=== PATIENT | male | born 1950 | race Caucasian/White ===

== ENCOUNTER 2017-04-07 20:26 | Observation (INO) | payer MEDICARE, OTHER ==
[2017-04-07] MEDS ORDERED: Diltiazem 25 MG/5 ML SDV IVPUSH ONE ×2 (20:37→22:16)
[2017-04-07] MEDS ORDERED: Sodium Chloride 0.9% 10 ML Syringe FLUSH PRN (20:37)
[2017-04-07] MEDS ORDERED: HYDROmorphone 2 MG/ML SDV IM ONE (21:45)
[2017-04-07] MEDS ORDERED: Ondansetron 4 MG Tab.DIS PO PRN (21:58)
--- NOTE | 2017-04-07 22:09 | PCM.HP ---
H&P History of Present Illness - General Date of Service: 04/07/17 Admit Problem/Dx: Admission Diagnosis/Problem Admission Diagnosis/Problem Rapid atrial fibrillation Source of Information: Patient History Limitations: Reports: No Limitations - History of Present Illness Initial Comments - Free Text/Narative: This is a 66-year-old male patient that started having palpitations, chest pressure that radiated up to his neck. This is a 6 PM he came at 7 PM and was noted to have rapid atrial fibrillation. He was given Cardizem 20 mg IV his heart rate slowed down his chest pain improved considerable. Troponin was checked in the ER and it was negative. He says he is always a little sweaty. Nothing new. No shortness of breath, nausea. He has a long history of atrial fibrillation 80s been reverted many times. The last time that he was cardioverted and was in [place] and given flecainide and he's been in sinus rhythm ever since. He says S2-3 years ago. He states he recently had a stress test but couldn't walk on the treadmill. They did chemically and was negative. That was at [facility] - Related Data Allergies/Adverse Reactions: Allergies Allergy/AdvReac Type Severity Reaction Status Date / Time No Known Allergies Allergy Verified 04/07/17 21:21 Home Medications: Home Meds Flecainide [Tambocor] 100 mg PO BID 04/23/15 [History] Metoprolol Succinate [Toprol Xl] 50 mg PO BEDTIME 04/23/15 [History] Mirtazapine [Remeron] 7.5 mg PO BEDTIME 04/23/15 [History] atorvaSTATin [Lipitor] 5 mg PO BEDTIME 04/23/15 [History] metFORMIN [Glucophage] 500 mg PO BID 04/23/15 [History] Past Medical History HEENT History: Reports: Other (See Below) (Hearing loss left ear) Cardiovascular History: Reports: Afib, Arrhythmia, High Cholesterol, Hypertension Other Psychiatric History: sleeping issues - Past Surgical History GI Surgical History: Reports: Appendectomy Musculoskeletal Surgical History: Reports: Arthroscopic Knee (Then a ACL repair after school.) Social & Family History - Tobacco Use Smoking Status *Q: Never Smoker Second Hand Smoke Exposure: No - Caffeine Use Caffeine Use: Reports: Coffee - Recreational Drug Use Recreational Drug Use: No H&P Review of Systems - Review of Systems: Review Of Systems: See Below General: Reports: No Symptoms HEENT: Reports: No Symptoms Pulmonary: Reports: No Symptoms Cardiovascular: Reports: Chest Pain, Palpitations. Denies: Edema, Syncope Gastrointestinal: Reports: No Symptoms Genitourinary: Reports: No Symptoms Musculoskeletal: Reports: No Symptoms Skin: Reports: No Symptoms Psychiatric: Reports: No Symptoms Neurological: Reports: No Symptoms Hematologic/Lymphatic: Reports: No Symptoms Immunologic: Reports: No Symptoms Exam - Exam Exam: See Below - Vital Signs Vital Signs: Last Vital Signs Temp 98.7 F 04/07/17 21:23 Pulse 156 H 04/07/17 21:23 Resp 18 04/07/17 21:23 BP 146/94 H 04/07/17 21:23 Pulse Ox 95 04/07/17 21:23 Weight: 270 lb - Exam General: Alert, Oriented, Cooperative HEENT: EACs Clear, Mucosa Moist & [place], Posterior Pharynx Clear, TMs Clear Neck: Supple, Trachea Midline Lungs: Clear to Auscultation, Normal Respiratory Effort. No: Crackles, Rales, Rhonchi, Rub Cardiovascular: Irregular Rhythm, Tachycardia. No: Systolic Murmur, Diastolic Murmur GI/Abdominal Exam: Normal Bowel Sounds, Soft, Non-Tender, No Organomegaly, No Distention, No Abnormal Bruit, No Mass Back Exam: Normal Inspection, Full Range of Motion, NT Extremities: Normal Inspection, Normal Range of Motion, Non-Tender, No Pedal Edema Skin: Warm Neurological: Normal Speech, Normal Tone Neuro Extensive - Mental Status: Alert, Oriented x3, Normal Mood/Affect, Normal Cognition Psychiatric: Alert, Normal Affect, Normal Mood - Patient Data Result Diagrams: 04/07/17 20:45 04/07/17 20:45 EKG INTERPRETATION Rhythm: A-Fib (Rapid) *Q Meaningful Use (ADM) - VTE *Q VTE Criteria *Q: - Stroke *Q Stroke Criteria *Q: - AMI *Q AMI Criteria *Q: - Problem List (1) Rapid atrial fibrillation SNOMED Code(s): 575035454 ICD Code: I48.91 - UNSPECIFIED ATRIAL FIBRILLATION Status: Acute Current Visit: Yes (2) Diabetes 1.5, managed as type 2 SNOMED Code(s): 055332057 ICD Code: E10.9 - TYPE 1 DIABETES MELLITUS WITHOUT COMPLICATIONS Status: Acute Current Visit: Yes Problem List Initiated/Reviewed/Updated: Yes Orders Last 24hrs: Active Orders 24 hr Category Date Time Status Patient Status [ADT] Routine ADT 04/07/17 21:58 Ordered Blood Glucose Check, Bedside [RC] BIDMEALS Care 04/07/17 21:58 Ordered EKG Documentation Completion [RC] ASDIRECTED Care 04/07/17 22:02 Ordered May Shower [RC] ASDIRECTED Care 04/07/17 21:58 Ordered Oxygen Therapy [RC] PRN Care 04/07/17 21:58 Ordered Up ad Annel [RC] ASDIRECTED Care 04/07/17 21:58 Ordered VTE/DVT Education [RC] Per Unit Routine Care 04/07/17 21:58 Ordered Vital Signs [RC] Q4H Care 04/07/17 21:58 Ordered Consistent Carbohydrate Diet [DIET] Diet 04/07/17 Breakfast Ordered INR,PT,PROTHROMBIN TIME [COAG] AM Lab 04/08/17 05:11 Ordered TROPONIN I [CHEM] AM Lab 04/08/17 05:11 Ordered Flecainide [Tambocor] Med 04/08/17 09:00 Ordered 100 mg PO BID Metoprolol Succinate [Toprol XL] Med 04/08/17 21:00 Ordered 50 mg PO BEDTIME Mirtazapine [Remeron] Med 04/08/17 21:00 Ordered 7.5 mg PO BEDTIME Ondansetron [Zofran ODT] Med 04/07/17 21:58 Ordered 4 mg PO Q4H PRN Sodium Chloride 0.9% @ 125 MLS/HR (1000ml) Med 04/07/17 22:15 Ordered Sodium Chloride 0.9% [Normal Saline] 1,000 ml IV ASDIRECTED atorvaSTATin [Lipitor] Med 04/08/17 21:00 Ordered 5 mg PO BEDTIME metFORMIN [Glucophage] Med 04/08/17 09:00 Ordered 500 mg PO BID Resuscitation Status Routine Resus Stat 04/07/17 21:58 Ordered EKG 12 Lead [EK] AM Ther 04/08/17 05:11 Ordered Medication Orders Atorvastatin Calcium (Lipitor) 5 mg PO BEDTIME SHARON Sodium Chloride (Normal Saline) 1,000 mls @ 125 mls/hr IV ASDIRECTED SHARON Metformin HCl (Glucophage) 500 mg PO BID SHARON Metoprolol Succinate (Toprol Xl) 50 mg PO BEDTIME SHARON Mirtazapine (Remeron) 7.5 mg PO BEDTIME SHARON Non-Formulary Medication (Flecainide [Tambocor]) 100 mg PO BID SHARON Ondansetron HCl (Zofran Odt) 4 mg PO Q4H PRN PRN Reason: nausea, able to take PO Sodium Chloride (Saline Flush) 10 ml FLUSH ASDIRECTED PRN PRN Reason: Keep Vein Open Last Admin: 04/07/17 21:10 Dose: 10 ml Assessment/Plan Comment:: 1. Admit the patient for observation in the ICU. 2. Discussed CODE STATUS needle be a full code. 3. Diabetic diet with Accu-Cheks twice a day. 4. Up ad annel. and may shower. 5. Restart regular medicines. 6. Cardizem drip to keep heart rate below 90 beats a minute. Keep blood pressure greater than 90/60
[2017-04-07] MEDS ORDERED: Diltiazem 100 MG in Sodium Chloride 0.9% 100 ML IV SCH (22:30)
[2017-04-07] MEDS: Sodium Chloride 0.9% 1,000 ML IV SCH (23:58)
[2017-04-08] MEDS ORDERED: Diltiazem 100 MG in Sodium Chloride 0.9% 100 ML IV SCH ×3 (01:30)
--- NOTE | 2017-04-08 03:00 | ER ---
DATE SEEN: 04/07/2017 TIME SEEN: 2100 hours. CHIEF COMPLAINT: Chest tightness. HISTORY OF PRESENT ILLNESS: This is a 66-year-old male with chest tightness that started this afternoon, it radiates to the neck area. He also has palpitations. He has a history of Afib, stable; type 2 diabetes, stable; hyperlipidemia and hypertension that have been well controlled. REVIEW OF SYSTEMS: He complains of nausea, vomiting. No headache. No fever or cough. ALLERGIES: No known allergies. SOCIAL HISTORY: He does not smoke. PHYSICAL EXAMINATION: VITAL SIGNS: His blood pressure initially is 160/130 and pulse 156, temperature 98.7, he has normal oxygenation while breathing room air. EARS, NOSE, and THROAT: Negative. HEAD: Normal size. NECK: Supple. CHEST: Clear. CARDIOVASCULAR: Irregular rate, tachycardic. LABORATORY DATA: BNP is 88. Troponin 0.01. White cell count is normal. Chest x-ray unremarkable. IMPRESSION: 1. Atrial fibrillation exacerbation with rapid ventricular response. 2. Chest pain. PLAN: I advised Dr. Armendariz to admit him. I did give him one bolus of 20 mg of Cardizem. He will be admitted for observation. /[id number] DIMITRY/ANTHONY
[2017-04-08] MEDS ORDERED: Acetaminophen 325 MG Tab PO PRN (03:10)
[2017-04-08] MEDS ORDERED: Metoprolol Succinate 100 MG Tab.ER PO ONE (08:25)
--- NOTE | 2017-04-08 08:27 | PCM.PN ---
- General Info Date of Service: 04/08/17 Admission Dx/Problem (Free Text): Patient has no concerns today. He denies chest pain, shortness of breath, palpitations. - Patient Data Vitals - Most Recent: Last Vital Signs Temp 97.7 F 04/08/17 05:00 Pulse 75 04/08/17 06:00 Resp 17 04/08/17 06:00 BP 105/58 L 04/08/17 06:00 Pulse Ox 96 04/08/17 06:00 Weight - Most Recent: 270 lb I&O - Last 24 Hours: Intake & Output 04/07/17 04/08/17 04/08/17 22:59 06:59 14:59 Intake Total 892 Balance 892 Lab Results Last 24 Hours: Laboratory Results - last 24 hr 04/08/17 04/08/17 Range/Units 06:10 06:10 PT 26.2 H (8.7-11.1) INR 2.54 H (0.89-1.13) Troponin I < 0.01 L (0.02-0.06) NG/ML Med Orders - Current: Current Medications Acetaminophen (Tylenol) 650 mg PO Q4H PRN PRN Reason: Pain (mild 1-3) Last Admin: 04/08/17 03:48 Dose: 650 mg Atorvastatin Calcium (Lipitor) 5 mg PO BEDTIME SHARON Sodium Chloride (Normal Saline) 1,000 mls @ 125 mls/hr IV ASDIRECTED SHARON Last Admin: 04/07/17 23:58 Dose: 125 mls/hr Diltiazem HCl 100 mg/ Sodium (Chloride) 100 mls @ 5 mls/hr IV TITRATE SHARON; 5 MG /HR PRN Reason: Protocol Last Titration: 04/08/17 05:04 Dose: 5 mg/hr, 5 mls/hr Metformin HCl (Glucophage) 500 mg PO BID SHARON Metoprolol Succinate (Toprol Xl) 50 mg PO BEDTIME SHARON Mirtazapine (Remeron) 7.5 mg PO BEDTIME SHARON Non-Formulary Medication (Flecainide [Tambocor]) 100 mg PO BID SHARON Ondansetron HCl (Zofran Odt) 4 mg PO Q4H PRN PRN Reason: nausea, able to take PO Sodium Chloride (Saline Flush) 10 ml FLUSH ASDIRECTED PRN PRN Reason: Keep Vein Open Last Admin: 04/07/17 21:10 Dose: 10 ml Discontinued Medications Diltiazem HCl (Diltiazem) 20 mg IVPUSH ONETIME ONE Stop: 04/07/17 20:38 Last Admin: 04/07/17 21:10 Dose: 20 mg Diltiazem HCl (Diltiazem) 15 mg IVPUSH ONETIME ONE Stop: 04/07/17 22:17 Last Admin: 04/07/17 23:17 Dose: 15 mg Diltiazem HCl 100 mg/ Sodium (Chloride) 100 mls @ 5 mls/hr IV TITRATE SHARON; 5 MG /HR PRN Reason: Protocol Diltiazem HCl 100 mg/ Sodium (Chloride) 100 mls @ 5 mls/hr IV TITRATE SHARON; 5 MG /HR PRN Reason: Protocol - Exam General: Alert, Oriented, Cooperative Lungs: Clear to Auscultation, Normal Respiratory Effort Cardiovascular: Regular Rate, No Murmurs, Irregular Rhythm Extremities: No Pedal Edema - Problem List & Annotations (1) Rapid atrial fibrillation SNOMED Code(s): 581771264 Code(s): I48.91 - UNSPECIFIED ATRIAL FIBRILLATION Status: Acute Current Visit: Yes (2) Diabetes 1.5, managed as type 2 SNOMED Code(s): 396145092 Code(s): E10.9 - TYPE 1 DIABETES MELLITUS WITHOUT COMPLICATIONS Status: Acute Current Visit: Yes - Problem List Review Problem List Initiated/Reviewed/Updated: Yes - My Orders Last 24 Hours: My Active Orders 04/07/17 21:58 Patient Status [ADT] Routine Blood Glucose Check, Bedside [RC] BIDMEALS May Shower [RC] ASDIRECTED Oxygen Therapy [RC] PRN Up ad Annel [RC] ASDIRECTED VTE/DVT Education [RC] Per Unit Routine Vital Signs [RC] Q4H Ondansetron [Zofran ODT] 4 mg PO Q4H PRN Resuscitation Status Routine 04/07/17 22:15 Sodium Chloride 0.9% [Normal Saline] 1,000 ml IV ASDIRECTED 04/08/17 00:00 Diltiazem [Cardizem] 100 mg Sodium Chloride 0.9% [Normal Saline] 100 ml IV TITRATE 04/08/17 05:11 EKG 12 Lead [EK] AM 04/08/17 09:00 Flecainide [Tambocor] 100 mg PO BID metFORMIN [Glucophage] 500 mg PO BID 04/08/17 21:00 Metoprolol Succinate [Toprol XL] 50 mg PO BEDTIME Mirtazapine [Remeron] 7.5 mg PO BEDTIME atorvaSTATin [Lipitor] 5 mg PO BEDTIME - Plan Plan:: Since his rate is controlled on a Cardizem drip and I do not want to have it on several different rates lowering agents. I'm going to increase his Toprol 100 mg XL once a day. Then 20 minutes later start to wean down his Cardizem drip. Hopefully his rate will be maintained. If we can maintain his rate on the beta donovan consider discharging to home. If we cannot then going to have to go to by mouth Cardizem. And then watch his rate.
[2017-04-08] MEDS: Sodium Chloride 0.9% 1,000 ML IV SCH (08:40)
[2017-04-08] MEDS ORDERED: [UNRECOGNIZED DRUG - REMARK] PO SCH (09:00)
[2017-04-08] MEDS ORDERED: METFORMIN 500 MG PO SCH ×2 (09:00→18:00)
[2017-04-08] MEDS ORDERED: Warfarin 10 MG Tab PO SCH ×2 (09:00→16:00)
[2017-04-08 14:08] VITALS: BP 121/74
--- NOTE | 2017-04-08 14:17 | PCM.SN ---
- Free Text/Narrative Note: He should maintain his heart rate on the Toprol-XL 100 mg then converted just before he came back to visit. Discharge to home on the regular medicines with increase of the Toprol-XL to 100 mg a day.
--- NOTE | 2017-04-08 14:24 | PCM.DCSUM1 ---
Discharge Summary - Hospital Course Free Text/Narrative:: Hospital course-patient was given a bolus of Cardizem 20 mg in the emergency room. His rate did slow down. Started to come back up by the time he got to the ICU he was back up to 130s. Given 15 mg of IV bolus of Cardizem and put him on a drip. The drip maintained his pulse below 90 all night long. I increase his metoprolol XL 200 mg a day and given to him in the morning. An hour later we stopped the Cardizem bolus and he maintained his rate below 80. At about 2 PM in the afternoon he converted back to normal sinus rhythm. He had 2 troponins were normal. EKG showed rapid atrial fib. We'll discharge him home on all his normal medications with increased dose of Toprol-XL 100 mg a day. He should follow-up with Dr. Carey his regular doctor in 7-10 days. Brief History: This is a 66-year-old male patient that started having palpitations, chest pressure that radiated up to his neck. This is a 6 PM he came at 7 PM and was noted to have rapid atrial fibrillation. He was given Cardizem 20 mg IV his heart rate slowed down his chest pain improved considerable. Troponin was checked in the ER and it was negative. He says he is always a little sweaty. Nothing new. No shortness of breath, nausea. He has a long history of atrial fibrillation 80s been reverted many times. The last time that he was cardioverted and was in [place] and given flecainide and he's been in sinus rhythm ever since. He says S2-3 years ago. He states he recently had a stress test but couldn't walk on the treadmill. They did chemically and was negative. That was at [facility] - Discharge Data Discharge Date: 04/08/17 Discharge Disposition: Home, Self-Care 01 Condition: Good - Discharge Diagnosis/Problem(s) (1) Rapid atrial fibrillation SNOMED Code(s): 178714183 ICD Code: I48.91 - UNSPECIFIED ATRIAL FIBRILLATION Status: Acute Current Visit: Yes (2) Diabetes 1.5, managed as type 2 SNOMED Code(s): 706656704 ICD Code: E10.9 - TYPE 1 DIABETES MELLITUS WITHOUT COMPLICATIONS Status: Acute Current Visit: Yes - Patient Instructions Diet: Heart Healthy Diet Activity: As Tolerated Driving: [address] Today Showering/Bathing: May Shower Other/Special Instructions: 1. Recheck with Dr. Richard Carey in 7-10 days. - Discharge Plan Prescriptions/Med Rec: Metoprolol Succinate [Toprol XL 100mg] 100 mg PO BEDTIME #30 tab.er Home Medications: Home Meds Flecainide [Tambocor] 100 mg PO BID 04/23/15 [History] Mirtazapine [Remeron] 7.5 mg PO BEDTIME 04/23/15 [History] atorvaSTATin [Lipitor] 5 mg PO BEDTIME 04/23/15 [History] metFORMIN [Glucophage] 500 mg PO BID 04/23/15 [History] Metoprolol Succinate [Toprol XL 100mg] 100 mg PO BEDTIME #30 tab.er 04/08/17 [Rx ] Warfarin [Coumadin] 7.5 mg PO MOFR 04/08/17 [History] Warfarin [Coumadin] 10 mg PO SUTUWETHSA 04/08/17 [History] Patient Handouts: Atrial Fibrillation, [id number], Venous Thromboembolism Prevention Forms: ED Department Discharge Referrals: Richard Carey MD [Primary Care Provider] - - Discharge Summary/Plan Comment DC Time >30 min.: No - Patient Data Vitals - Most Recent: Last Vital Signs Temp 97.7 F 04/08/17 05:00 Pulse 97 04/08/17 14:00 Resp 18 04/08/17 14:00 BP 121/74 04/08/17 14:00 Pulse Ox 95 04/08/17 14:00 Weight - Most Recent: 270 lb I&O - Last 24 hours: Intake & Output 04/07/17 04/08/17 04/08/17 22:59 06:59 14:59 Intake Total 892 Balance 892 Lab Results - Last 24 hrs: Laboratory Results - last 24 hr 04/08/17 04/08/17 Range/Units 06:10 06:10 PT 26.2 H (8.7-11.1) INR 2.54 H (0.89-1.13) Troponin I < 0.01 L (0.02-0.06) NG/ML Med Orders - Current: Current Medications Acetaminophen (Tylenol) 650 mg PO Q4H PRN PRN Reason: Pain (mild 1-3) Last Admin: 04/08/17 03:48 Dose: 650 mg Atorvastatin Calcium (Lipitor) 5 mg PO BEDTIME SHARON Sodium Chloride (Normal Saline) 1,000 mls @ 125 mls/hr IV ASDIRECTED SHARON Last Admin: 04/08/17 08:40 Dose: 125 mls/hr Diltiazem HCl 100 mg/ Sodium (Chloride) 100 mls @ 5 mls/hr IV TITRATE SHARON; 5 MG /HR PRN Reason: Protocol Last Titration: 04/08/17 09:40 Dose: 0 mg/hr, 0 mls/hr Metformin HCl (Glucophage) 500 mg PO BIDMEALS SHARON Metoprolol Succinate (Toprol Xl) 50 mg PO BEDTIME SHARON Mirtazapine (Remeron) 7.5 mg PO BEDTIME SHARON (Flecainide [ Tambocor] 100 Mg)*Pt Own Med* Verified Sjs 100 mg PO BID SHARON Last Admin: 04/08/17 10:30 Dose: 100 mg Ondansetron HCl (Zofran Odt) 4 mg PO Q4H PRN PRN Reason: nausea, able to take PO Sodium Chloride (Saline Flush) 10 ml FLUSH ASDIRECTED PRN PRN Reason: Keep Vein Open Last Admin: 04/07/17 21:10 Dose: 10 ml Warfarin Sodium (Coumadin) 7.5 mg PO MoFr[facility] Warfarin Sodium (Coumadin) 10 mg PO SuTuWeThSa@[facility] Discontinued Medications Diltiazem HCl (Diltiazem) 20 mg IVPUSH ONETIME ONE Stop: 04/07/17 20:38 Last Admin: 04/07/17 21:10 Dose: 20 mg Diltiazem HCl (Diltiazem) 15 mg IVPUSH ONETIME ONE Stop: 04/07/17 22:17 Last Admin: 04/07/17 23:17 Dose: 15 mg Diltiazem HCl 100 mg/ Sodium (Chloride) 100 mls @ 5 mls/hr IV TITRATE SHARON; 5 MG /HR PRN Reason: Protocol Diltiazem HCl 100 mg/ Sodium (Chloride) 100 mls @ 5 mls/hr IV TITRATE SHARON; 5 MG /HR PRN Reason: Protocol Metformin HCl (Glucophage) 500 mg PO BID SHARON Last Admin: 04/08/17 10:30 Dose: 500 mg Metoprolol Succinate (Toprol Xl) 100 mg PO ONETIME ONE Stop: 04/08/17 08:26 Last Admin: 04/08/17 08:39 Dose: 100 mg Warfarin Sodium (Coumadin) 10 mg PO SuTuWeThSa@1600 SHARON Warfarin Sodium (Coumadin) 7.5 mg PO MoFr@1600 SHARON Warfarin Sodium (Coumadin) 10 mg PO SuTuWeThSa@0900 SHARON Last Admin: 04/08/17 10:30 Dose: 10 mg *Q Meaningful Use (DIS) - VTE *Q VTE Criteria *Q: - Stroke *Q Stroke Criteria *Q: - AMI *Q AMI Criteria *Q:
[2017-04-08] MEDS ORDERED: atorvaSTATin 10 MG Tab PO SCH (21:00)
[2017-04-08] MEDS ORDERED: Metoprolol Succinate 100 MG Tab.ER PO SCH (21:00)
[2017-04-08] MEDS ORDERED: Mirtazapine 15 MG Tab PO SCH (21:00)
[2017-04-09] MEDS ORDERED: [UNRECOGNIZED DRUG - REMARK] PO SCH (09:00)
--- NOTE | 2017-04-09 11:44 | CR ---
INDICATION: Chest pain. CHEST: AP portable upright view of the chest 04/07/2017 was compared with 04/23 and revealed the heart to be normal in size and shape. The aorta is somewhat tortuous. A definite active infiltrate or effusion was not identified. Overlying EKG leads are noted. There is an appearance of a nodular density again noted in the left mid lateral lung field of approximately 1 cm diameter, likely representing a granuloma, as it appears unchanged. IMPRESSION: 1. No acute process. 2. ASD aorta. MTDD
[2017-04-09] MEDS ORDERED: Warfarin 2.5 MG Tab PO SCH (16:00)
[2017-04-10] MEDS ORDERED: [UNRECOGNIZED DRUG - REMARK] PO SCH (09:00)
== END 2017-04-08 14:29 | disposition home or self-care (01) ==
LOC: FB.ED 20:26 → FB.ICU 21:46
PROVIDERS: ADMIT Family Medicine; ATTEND Family Medicine
DX: I48.91 Unspecified atrial fibrillation (principal); E10.9 Type 1 diabetes mellitus without complications; I10 Essential (primary) hypertension; E78.00 Pure hypercholesterolemia, unspecified; Z79.01 Long term (current) use of anticoagulants; Z79.899 Other long term (current) drug therapy; Z90.49 Acquired absence of other specified parts of digestive tract; Z79.84 Long term (current) use of oral hypoglycemic drugs; Z98.890 Other specified postprocedural states
CPT/HCPCS: 36415; 71010; 80048; 82962; 83880; 84484; 85025; 85610; 93005; 96365; 96366; 96375; 96376; 99284; 99285; A9270; G0378; J7030; J7040; J7050; 96374; 99217; 99220; J3490

== ENCOUNTER 2024-03-19 04:41 | Emergency (ER) | payer MEDICARE, OTHER ==
[2024-03-19] MEDS ORDERED: Sodium Chloride 0.9% 10 ML Syringe FLUSH PRN (05:10)
[2024-03-19] MEDS ORDERED: hydrALAZINE 20 MG/ML SDV IVPUSH ONE (05:13)
[2024-03-19 05:41] LABS: BASOPHILS ABSOLUTE AUTO 0.1 x10-3/uL (0.0-0.3); BASOPHILS PERCENT AUTO 0.7 % (0.3-3.8); EOSINOPHILS ABSOLUTE AUTO 0.2 x10-3/uL (0.0-0.6); EOSINOPHILS PERCENT AUTO 2.5 % (0.1-6.8); HEMATOCRIT 41.7 % (38.3-50.1); HEMOGLOBIN 14.6 g/dL (12.9-17.7); MEAN CORPUSCULAR HEMOGLOBIN 30.7 pg (27.0-33.3); MEAN CORPUSCULAR VOLUME 87.5 fL (80.8-98.7); MEAN PLATELET VOLUME 8.3 fL (6.7-11.0); MONOCYTES ABSOLUTE AUTO 0.7 x10-3/uL (0.0-1.2); MONOCYTES PERCENT AUTO 8.8 % (5.5-15.2); NEUTROPHILS ABSOLUTE AUTO 4.2 x10-3/uL (1.7-6.9); PLATELET COUNT,PLT 214 x10(3)uL (117-477); RED BLOOD CELL COUNT 4.76 x10(6)uL (3.90-5.90); RED CELL DISTRIBUTION WIDTH 13.2 % (12.4-15.0); WHITE BLOOD CELL COUNT,WBC 8.2 x10-3/uL (3.2-10.1)
[2024-03-19 05:43] LABS: BLOOD UREA NITROGEN,BUN 20 mg/dL (7-18); BUN/CREATININE RATIO 18.2 (9-20); CALCIUM 9.5 mg/dL (8.6-10.2); CARBON DIOXIDE,CO2 26 mmol/L (21-32); CHLORIDE,CL 106 mmol/L (100-110); CREATININE 1.1 mg/dL (0.70-1.30); ESTIMATED GFR 71 mL/min (>60); GLUCOSE RANDOM 184 mg/dL (80-116); POTASSIUM,K 4.3 mmol/L (3.5-5.3); SODIUM,NA 140 mmol/L (135-145)
[2024-03-19 05:47] LABS: INR 2.15 (1.00-1.24)
[2024-03-19 05:48] LABS: A/G RATIO 1.2; ALANINE AMINOTRANSFERASE,ALT 22 U/L (12-36); ALBUMIN 3.7 g/dL (3.2-4.6); ALKALINE PHOSPHATASE 69 IU/L (56-112); ASPARTATE AMNIOTRANSFERASE,AST 13 IU/L (5-25); BILIRUBIN TOTAL 0.5 mg/dL (0.1-1.3); PROTEIN TOTAL,TP 6.7 g/dL (6.0-8.0)
[2024-03-19 05:52] LABS: TROPONIN I 21.1 pg/mL (4.0-60.3)
[2024-03-19] MEDS: Nitroglycerin 0.4 MG Tab.SL SL ONE (06:23)
[2024-03-19 07:12] VITALS: BP 134/67; PULSE 58
== END 2024-03-19 07:08 | disposition home or self-care (01) ==
LOC: FB.ED 04:41
DX: I16.9 Hypertensive crisis, unspecified (principal); R07.89 Other chest pain; I48.91 Unspecified atrial fibrillation; E78.00 Pure hypercholesterolemia, unspecified; E11.9 Type 2 diabetes mellitus without complications; Z79.84 Long term (current) use of oral hypoglycemic drugs; Z79.899 Other long term (current) drug therapy; Z79.01 Long term (current) use of anticoagulants
CPT/HCPCS: 36415; 71045; 80053; 83880; 84484; 85025; 85610; 85730; 93005; 99285; A9270; 93010; 99284